=== PATIENT | female | born 1940 | race African-American/Black ===

== ENCOUNTER 2020-02-18 11:55 | Inpatient (IN) | payer MEDICARE ==
[~2020-02-18] VITALS: Ht 160 cm; Wt 49.4 kg
[~2020-02-18 11:55] MED LIST: ASA PO; BYSTOLIC PO; LANTUS SC; OLMETAB3 OR
[2020-02-18] MEDS ORDERED: SODIUM CHLORIDE 0.9% 1,000 ML IVB ONE (14:17)
[2020-02-18] MEDS ORDERED: ACETAMINOPHEN 325 MG TAB PO ONE (16:00)
[2020-02-18 16:13] LABS: Alanine Aminotransferase 10 U/L (13-56); Albumin 2.7 g/dL (3.4-5.0); Anion Gap 9 (5-15); Aspartate Aminotransferase 12 U/L (15-37); BUN/Creatinine Ratio 33.3; Blood Urea Nitrogen 37 mg/dL (7-18); Carbon Dioxide 30 mmol/L (21-32); Chloride 93 mmol/L (98-107); GFR African American 61 mL/min; GFR Non-African American 51 mL/min; Glucose 141 mg/dL (74-106); Potassium 3.1 mmol/L (3.5-5.1); Sodium 132 mmol/L (136-145)
[2020-02-18 16:15] LABS: Basophils # (auto) 0.1 10 ^3/uL (0-0.2); Basophils % (auto) 0.8 % (0.0-2.0); Eosinophils # (auto) 0 10 ^3/uL (0-0.8); Eosinophils % (auto) 0.1 % (0.0-7.0); Hematocrit 37.1 % (36.0-46.0); Hemoglobin 12.5 g/dL (12.2-16.2); Lymphocytes # (auto) 0.8 10 ^3/uL (0.4-5.4); Lymphocytes % (auto) 7.9 % (10.0-50.0); Mean Corpuscular Hemoglobin 27.5 pg (28.0-32.0); Mean Corpuscular Hgb Conc. 33.7 g/dL (32.0-36.0); Mean Corpuscular Volume 81.7 fL (80.0-100.0); Monocytes # (auto) 0.8 10 ^3/uL (0-1.3); Monocytes % (auto) 8.1 % (0.0-12.0); Neutrophils # (auto) 8.3 10 ^3/uL (1.6-8.6); Neutrophils % (auto) 83.1 % (37.0-80.0); Nucleated Red Blood Cells % 0.1 %; Platelet Count (auto) 385 10^3/uL (140-450); Red Blood Cells 4.55 10^6/uL (4.0-5.20); Red Cell Distribution Width 15.7 % (11.8-14.3)
[2020-02-18 16:18] LABS: Alkaline Phosphatase 123 U/L (45-117); Bilirubin, Total 1.2 mg/dL (0.2-1.0); Total Protein 7.5 g/dL (6.4-8.2)
[2020-02-18 17:00] LABS: INR 1.09 (0.9-1.15)
[2020-02-18] MEDS ORDERED: POTASSIUM CHL 20 Meq TABLET PO ONE ×2 (17:15→19:15)
[2020-02-18] MEDS ORDERED: AMLO10TA13 PO (18:33)
[2020-02-18] MEDS ORDERED: LISI30TA4 PO (18:33)
[2020-02-18] MEDS ORDERED: ALPR0.5T PO (18:33)
[2020-02-18] MEDS ORDERED: HCTZ25T PO (18:33)
[2020-02-18] MEDS ORDERED: INSUINJ37 SC (18:33)
[2020-02-18] MEDS ORDERED: LISI40TA11 PO (18:34)
[2020-02-18] MEDS ORDERED: BUSP7.5T10 PO (18:35)
[2020-02-18] MEDS ORDERED: TIZA2TAB3 PO (18:38)
[2020-02-18] MEDS ORDERED: CLO01T PO (18:38)
[2020-02-18] MEDS ORDERED: NALO4SPR2 (18:41)
[2020-02-18] MEDS ORDERED: ACET300T4 PO (18:43)
[2020-02-18] MEDS ORDERED: SODIUM CHLORIDE 0.9% 1,000 ML IV SCH (19:11)
[2020-02-18] MEDS ORDERED: POTASSIUM CHL 20MEQ/100ML 100 ML IV ONE (19:15)
[2020-02-18] MEDS ORDERED: DOCUSATE SOD 100 MG CAP PO PRN (19:15)
[2020-02-18] MEDS ORDERED: LORazepam 0.5 MG TAB PO PRN (19:15)
[2020-02-18] MEDS ORDERED: DEXTROSE (50%) 50ML SYRG IV PRN (19:15)
[2020-02-18] MEDS ORDERED: cloNIDine HCL 0.1 MG TAB PO PRN (19:15)
[2020-02-18] MEDS ORDERED: ACETAMINOPHEN 325 MG TAB PO PRN (19:15)
[2020-02-18] MEDS ORDERED: NITROGLYCERIN 0.4 MG SL TAB SL PRN (19:15)
[2020-02-18] MEDS ORDERED: ASPirin 81 mg TAB PO ONE (19:15)
[2020-02-18] MEDS ORDERED: METOPROLOL SUCCINATE XL 50 MG TAB PO ONE (19:15)
[2020-02-18] MEDS ORDERED: ALUM & MAG HYDROX-SIMETH LIQ(MAALOX) 30 ML PO PRN (19:15)
[2020-02-18] MEDS ORDERED: MORPHINE SULF INJ 2 MG/ML SYRINGE 1ML IV PRN (19:15)
[2020-02-18] MEDS: HYDROcodone-ACET 5/325MG TAB PO PRN (20:07)
[2020-02-18] MEDS: ACCU-CHEK COMFORT CURVE STRIP VI SCH (22:00)
[2020-02-18] MEDS: InsuLIN REG 1unit/0.01ml Soln (100units/ml) SC SCH (22:00)
[2020-02-18 22:25] VITALS: BP 132/55
[2020-02-18] MEDS: busPIRone HCL 10 MG TAB PO SCH (23:00)
[2020-02-18] MEDS: ATORVASTATIN 20 MG TAB PO SCH (23:00)
--- NOTE | 2020-02-18 23:00 | NUR ---
Pt too lethargic to take medications; drops off to sleep long-term through stating her name and her birthdate.
[2020-02-19 01:14] LABS: Cholesterol 146 mg/dL (< 200); Triglycerides 86 mg/dL (< 150)
[2020-02-19 01:16] LABS: HDL Cholesterol 35 mg/dL (40-59); LDL Cholesterol 106 mg/dL (< 100)
[2020-02-19] MEDS: SODIUM CHLORIDE 0.9% 1,000 ML IV SCH ×3 (02:45→22:49)
[2020-02-19] MEDS: cefTRIAXone 1GM/50ML D5W 50 ML IV SCH (03:00)
[2020-02-19 05:00] VITALS: BP 121/56
[2020-02-19] MEDS: InsuLIN REG 1unit/0.01ml Soln (100units/ml) SC SCH ×4 (07:00→22:00)
[2020-02-19] MEDS: ACCU-CHEK COMFORT CURVE STRIP VI SCH ×4 (07:13→22:00)
--- NOTE | 2020-02-19 07:13 | NUR ---
Spoke shaquille Zelaya, pt's dtr, via phone. Stated password diff from what pt had said - informed her of current password. Nathalie states pt is showing early stages of dementia and can be resistant to care so "push back." Expressed concern re. pt's L arm/hand and etiology of swelling and pain and if pt having seizures or syncope. Advised her to call after 0800 and nearer to 1000 to begin to get answers to these questions. She VU.
[2020-02-19 09:00] VITALS: BP 149/65
[2020-02-19] MEDS: ASPirin 81 mg TAB PO SCH (09:43)
[2020-02-19] MEDS: HCTZ 25 MG TAB PO SCH (09:44)
[2020-02-19] MEDS: busPIRone HCL 10 MG TAB PO SCH ×2 (09:44→22:32)
[2020-02-19] MEDS: POTASSIUM CHL 20 Meq TABLET PO SCH ×2 (09:45→09:52)
[2020-02-19] MEDS: NIFEdipine ER 30 MG TAB PO SCH (09:45)
[2020-02-19] MEDS: LISINOPRIL 20 MG TAB PO SCH (09:46)
[2020-02-19] MEDS: ENOXAPARIN SOD 40 MG/0.4 ML SYRINGE SC SCH ×2 (09:46→09:53)
[2020-02-19 13:00] VITALS: BP 146/69
[2020-02-19] MEDS ORDERED: POTASSIUM EFFERVESENT TAB 25 MEQ PO ONE (13:45)
[2020-02-19] MEDS: HYDROcodone-ACET 5/325MG TAB PO PRN (14:50)
[2020-02-19 17:00] VITALS: BP 128/56
[2020-02-19] MEDS ORDERED: LORazepam 2MG/ML-1ML VIAL IV PRN ×2 (20:15)
[2020-02-19 21:32] VITALS: BP 114/55
[2020-02-19] MEDS: ATORVASTATIN 20 MG TAB PO SCH (22:32)
[2020-02-19 22:33] LABS: Cholesterol 164 mg/dL (< 200); HDL Cholesterol 39 mg/dL (40-59); LDL Cholesterol 114 mg/dL (< 100); Triglycerides 97 mg/dL (< 150)
[2020-02-19] MEDS: ONDANSETRON HCL 4 MG/2 ML VIAL IV PRN (23:01)
[2020-02-19] MEDS: MORPHINE SULF INJ 2 MG/ML SYRINGE 1ML IV PRN (23:07)
[2020-02-20] MEDS: ONDANSETRON HCL 4 MG/2 ML VIAL IV PRN ×2 (04:31→09:33)
[2020-02-20] MEDS: MORPHINE SULF INJ 2 MG/ML SYRINGE 1ML IV PRN ×4 (04:32→22:27)
--- NOTE | 2020-02-20 04:39 | NUR ---
Pt up to BR with assist then back to bed; requested "another one of those pain shots" for the pain in her L arm. Pt does not want [place] as she says, "It makes me a little loopy." Morphine given as ordered after Zofran to prevent possible nausea. Pt sleeping.
[2020-02-20 05:00] VITALS: BP 129/56
[2020-02-20] MEDS: ACCU-CHEK COMFORT CURVE STRIP VI SCH ×4 (06:09→22:27)
[2020-02-20] MEDS: InsuLIN REG 1unit/0.01ml Soln (100units/ml) SC SCH ×4 (06:13→22:32)
[2020-02-20 06:27] LABS: Potassium 3.1 mmol/L (3.5-5.1)
[2020-02-20 06:33] LABS: BUN/Creatinine Ratio 37.8; Calcium 8.4 mg/dL (8.5-10.1)
--- NOTE | 2020-02-20 07:45 | NUR ---
Opening Shift Note Assumed care of patient, awake, and alert. No S/S of distress/SOB or pain. Bed in lowest/locked position, bed rails up x2, call light within reach. Instructed on POC and to call for assist PRN. Will continue to monitor for changes Q1hr and PRN.
[2020-02-20 09:00] VITALS: BP 129/60
[2020-02-20] MEDS: ENOXAPARIN SOD 40 MG/0.4 ML SYRINGE SC SCH (09:14)
[2020-02-20] MEDS: POTASSIUM CHL 20 Meq TABLET PO SCH (09:14)
[2020-02-20] MEDS: cefTRIAXone 1GM/50ML D5W 50 ML IV SCH (09:14)
[2020-02-20] MEDS: busPIRone HCL 10 MG TAB PO SCH ×2 (09:15→22:19)
[2020-02-20] MEDS: HCTZ 25 MG TAB PO SCH (09:15)
[2020-02-20] MEDS: ASPirin 81 mg TAB PO SCH (09:15)
[2020-02-20] MEDS: NIFEdipine ER 30 MG TAB PO SCH (09:15)
[2020-02-20] MEDS: LISINOPRIL 20 MG TAB PO SCH (09:16)
[2020-02-20] MEDS: SODIUM CHLORIDE 0.9% 1,000 ML IV SCH ×2 (09:20→18:24)
--- NOTE | 2020-02-20 10:40 | NUR ---
MD ROUNDS DR Luz Marina W[place] AT BEDSIDE WITH PATIENT
--- NOTE | 2020-02-20 11:20 | NUR ---
EEG PATIENT UNABLE TO HAVE EEG PERFORMED. PER PATIENT; SHE HAS A "SEWN IN WEAVE" THAT CANNOT BE REMOVED. DR Luz Marina WASHINGTON MADE AWARE
[2020-02-20 12:32] VITALS: BP 148/70
--- NOTE | 2020-02-20 12:42 | NUR ---
Nutrition Assessment Notes please see attached link for complete assessment [employer] needs BW 47 [id number] kcal (25-30 kcal/kg BW), Est protein needs: 47-56g (1.0-1.2 g/kg BW). Will reassess prn. Addendum: 02/20/20 at [address] Amended: Links added.
--- NOTE | 2020-02-20 13:10 | NUR ---
EEG-UNABLE TO COMPLETE ELECTROENCEPHALOGRAM DUE TO SOWED IN HAIR WEAVE
--- NOTE | 2020-02-20 16:32 | NUR ---
INSULIN PATIENT B/S 131. PATIENT REFUSING 2 UNITS OF INSULIN AT THIS TIME. PER PATIENT; "I'M NOT EATING TOO MUCH RIGHT NOW TO TAKE INSULIN.". EDUCATED PATIENT ON INSULIN, PATIENT VERBALIZED UNDERSTANDING, CONTINUES TO REFUSE INSULIN AT THIS TIME. WILL CONTINUE TO MONITOR
[2020-02-20 17:00] VITALS: BP 155/71
--- NOTE | 2020-02-20 19:37 | NUR ---
Opening Shift Note Received report and assumed care of patient. Patient is awake and alert to self, confused about location. Reoriented patient to place. No signs or symptoms of distress noted. Instructed patient on plan of care and to call for assistance as needed. Will continue to monitor.
[2020-02-20] MEDS ORDERED: POTASSIUM EFFERVESENT TAB 25 MEQ PO ONE (21:30)
[2020-02-20 21:44] VITALS: BP 144/67
[2020-02-20] MEDS: ATORVASTATIN 20 MG TAB PO SCH (22:19)
[2020-02-21] MEDS: SODIUM CHLORIDE 0.9% 1,000 ML IV SCH (04:45)
[2020-02-21 04:50] LABS: Urine Bacteria NONE SEEN /hpf (None Seen); Urine Blood Negative /uL (Negative); Urine Specific Gravity 1.012 (1.001-1.035); Urine WBC 1 /hpf (0 - 5)
[2020-02-21 05:05] LABS: Alcohol, Urine < 3.0 mg/dL (0-10); Amphetamine Screen, Urine NEGATIVE (NEGATIVE); Barbiturate Scree,Urine NEGATIVE (NEGATIVE); Benzodiazephine Screen, Urine NEGATIVE (NEGATIVE); Cannabinoid Screen, Urine NEGATIVE (NEGATIVE); Cocaine Screen, Urine NEGATIVE (NEGATIVE); Opiate Scree,Urine POSITIVE (NEGATIVE); Phencyclidine Screen, Urine NEGATIVE (NEGATIVE)
[2020-02-21 05:23] VITALS: BP 136/63
[2020-02-21] MEDS: InsuLIN REG 1unit/0.01ml Soln (100units/ml) SC SCH ×2 (06:23→11:08)
[2020-02-21] MEDS: ACCU-CHEK COMFORT CURVE STRIP VI SCH ×2 (06:23→11:09)
[2020-02-21] MEDS: MORPHINE SULF INJ 2 MG/ML SYRINGE 1ML IV PRN (08:29)
[2020-02-21] MEDS: cefTRIAXone 1GM/50ML D5W 50 ML IV SCH (08:30)
[2020-02-21 08:34] LABS: BUN/Creatinine Ratio 24.6; Calcium 8.8 mg/dL (8.5-10.1); Potassium 3.4 mmol/L (3.5-5.1)
--- NOTE | 2020-02-21 09:32 | NUR ---
Potassium 3.4, received new order from Dr. Turpin, noted and carried it out.
[2020-02-21] MEDS ORDERED: POTASSIUM CHL 20 Meq TABLET PO ONE (09:45)
[2020-02-21 09:56] VITALS: BP 129/60
[2020-02-21] MEDS: ASPirin 81 mg TAB PO SCH (10:04)
[2020-02-21] MEDS: HCTZ 25 MG TAB PO SCH (10:05)
[2020-02-21] MEDS: ENOXAPARIN SOD 40 MG/0.4 ML SYRINGE SC SCH (10:05)
[2020-02-21] MEDS: busPIRone HCL 10 MG TAB PO SCH (10:05)
[2020-02-21] MEDS: NIFEdipine ER 30 MG TAB PO SCH (10:09)
[2020-02-21] MEDS: POTASSIUM CHL 20 Meq TABLET PO SCH (10:09)
[2020-02-21] MEDS: LISINOPRIL 20 MG TAB PO SCH (10:10)
--- NOTE | 2020-02-21 11:30 | NUR ---
Discharge instructions given as ordered. Encourage to follow up with PMD (FOLLOW UP WITH PRIMARY CARE PROVIDER DR COATS CALL SUNDAY [facility] TO SCHEDULE APPOINTMENT [id number] [facility] [address] [place] [address] )as instructed. All questions and concerns addressed. Patient verbalized understanding. Medication reconciliation form completed and copy given to patient. IV removed with catheter intact, pressure dressing applied. Telemetry unit returned to ICU. Patient taken to vehicle via wheelchair with all personal belongings, accompanied by staff and family member. No distress noted at time of departure. Signed: 02/21/20 at 1131 by FAUSTINO SOSA RN
== END 2020-02-21 11:30 | disposition home or self-care (01) | DRG 312 ==
LOC: ER 11:55 → TELE 11:56 → TELE-WESTW 22:26
PROVIDERS: ADMIT Hospitalist; ATTEND Family Medicine
DX: R55 Syncope and collapse (principal); N39.0 Urinary tract infection, site not specified; E87.1 Hypo-osmolality and hyponatremia; I13.0 Hypertensive heart and chronic kidney disease with heart failure and stage 1 through stage 4 chronic kidney disease, or unspecified chronic kidney disease; I50.32 Chronic diastolic (congestive) heart failure; N17.9 Acute kidney failure, unspecified; E78.5 Hyperlipidemia, unspecified; E11.22 Type 2 diabetes mellitus with diabetic chronic kidney disease; E78.00 Pure hypercholesterolemia, unspecified; E87.6 Hypokalemia; F17.210 Nicotine dependence, cigarettes, uncomplicated; F41.9 Anxiety disorder, unspecified; G40.909 Epilepsy, unspecified, not intractable, without status epilepticus; J44.9 Chronic obstructive pulmonary disease, unspecified; N18.3 Chronic kidney disease, stage 3 (moderate); R29.6 Repeated falls; G30.9 Alzheimer's disease, unspecified; F02.80 Dementia in other diseases classified elsewhere, unspecified severity, without behavioral disturbance, psychotic disturbance, mood disturbance, and anxiety; M25.532 Pain in left wrist; M79.642 Pain in left hand; Z79.4 Long term (current) use of insulin; Z86.73 Personal history of transient ischemic attack (TIA), and cerebral infarction without residual deficits; Z79.82 Long term (current) use of aspirin; Z79.899 Other long term (current) drug therapy; Z82.0 Family history of epilepsy and other diseases of the nervous system; Z90.710 Acquired absence of both cervix and uterus
CPT/HCPCS: 36415; 70450; 70551; 71045; 73110; 73200; 80048; 80053; 80061; 80307; 81001; 82607; 82962; 83036; 83735; 84443; 84484; 85025; 85610; 85730; 87040; 87086; 93005; 93306; 93886; 96361; 96365; 97163; G0378; J0696; J1815; J2405; J3480